=== PATIENT | male | born 1945 | race African-American/Black ===

== ENCOUNTER 2018-06-18 09:06 | Emergency (ER) | payer OTHER ==
[~2018-06-18] VITALS: Ht 175.3 cm; Wt 80.0 kg
[~2018-06-18 09:06] MED LIST: ASA5EC PO; TERA2CAP4 PO
[2018-06-18] MEDS ORDERED: ACETAMINOPHEN 325MG TABLET PO ONE (10:45)
[2018-06-18 12:33] VITALS: BP 155/75
== END 2018-06-18 12:45 | disposition home or self-care (01) ==
LOC: ER 10:52
DX: M54.6 Pain in thoracic spine (principal); I10 Essential (primary) hypertension; I25.2 Old myocardial infarction; Z90.89 Acquired absence of other organs; Z79.899 Other long term (current) drug therapy; Z79.82 Long term (current) use of aspirin; V49.49XA Driver injured in collision with other motor vehicles in traffic accident, initial encounter; Y93.89 Activity, other specified; Y92.89 Other specified places as the place of occurrence of the external cause; Y99.8 Other external cause status
CPT/HCPCS: 72128; 72131; 99284